=== PATIENT | female | born 1965 | race Caucasian/White ===

== ENCOUNTER 2019-01-25 09:14 | Emergency (ER) | payer OTHER ==
[2019-01-25] MEDS ORDERED: cefTRIAXone 1 GM VIAL IM STA (10:16)
[2019-01-25] MEDS ORDERED: LIDOCAINE 1% 2 ML VIAL MC ONE (10:16)
--- NOTE | 2019-01-25 10:35 | ED Physician Documentation ---
PD HPI URI - Stated complaint Stated Complaint: FEVER - Chief complaint Chief Complaint: Fever - History obtained from History obtained from: Patient, Family - History of Present Illness Timing - onset: How many days ago (3) Timing duration: Days (3) Timing details: Gradual onset, Still present Associated symptoms: Fever, Chills, Sweats, Nasal congestion, Rhinorrhea, Dry cough Improves by: Rest, Medication, MDI/nebulizer Similar symptoms before: Diagnosis (pneumonia) Recently seen: Clinic - Additional information Additional information: 53-year-old female who had a pneumonia 3 weeks ago was treated with a 5-day course of Levaquin and she improved slowly. She now reports that she is developed an increase in her cough and cold symptoms over the last 3 days and last night she developed fever. She does feel rundown and thinks she has the pneumonia back again. Review of Systems Constitutional: reports: Fever, Chills, Myalgias, Fatigue, Sweats Eyes: denies: Decreased vision Ears: denies: Ear pain Nose: reports: Congestion. 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 : None HEENT: None Psych: None Musculoskeletal: Rheumatoid arthritis Derm: None - Past Surgical History Past Surgical History: Yes - Present Medications Home Medications: Ambulatory Orders Medication Instructions Recorded Confirmed Albuterol 0 mg INH Q4H PRN 01/25/19 01/25/19 Azithromycin [Zithromax] 250 mg PO DAILY #6 tablet 01/25/19 Fluticasone/Salmeterol [Advair 0 puffs INH DAILY 01/25/19 01/25/19 500-50 Diskus] Methotrexate 0 mg PO OAW 01/25/19 01/25/19 Montelukast [Singulair] 10 mg PO QPM 01/25/19 01/25/19 SUMAtriptan [Imitrex] 0 mg PO PRN PRN 01/25/19 01/25/19 - Allergies Allergies/Adverse Reactions: Allergies Allergy/AdvReac Type Severity Reaction Status Date / Time No Known Drug Allergies Allergy Verified 01/25/19 09:32 - Social History Does the pt smoke?: No Smoking Status: Never smoker Does the pt drink ETOH?: No Does the pt have substance abuse?: No - Immunizations Immunizations are current?: Yes PD ED PE NORMAL - Vitals Vital signs reviewed: Yes (tachy and hypertensive ) - General General: Alert and oriented X 3, No acute distress, Well developed/nourished - HEENT HEENT: Atraumatic, PERRL, EOMI, Ears normal, Moist mucous membranes, Pharynx benign, Dentition benign - Neck Neck: Supple, no meningeal sign, No bony TTP - Cardiac Cardiac: No murmur, Other (tachy to 100) - Respiratory Respiratory: No respiratory distress, Other (scattered wheezes and rhonchi bilat) - Abdomen Abdomen: Soft, Non tender - Back Back: No CVA TTP, No spinal TTP - Derm Derm: Normal color, Warm and dry, No rash - Extremities Extremities: No deformity, No edema - Neuro Neuro: Alert and oriented X 3, 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 Mild right upper lobe volume loss and mild bandlike airspace opacity in the anterior posterior segment of the right upper lobe abutting the major and minor fissures which may reflect atelectasis or scarring, not a typical appearance for a lobar pneumonia. 2. Mild wispy airspace opacity suggesting atelectasis or scarring in the posterior medial lung bases bilaterally), EMP read indepedently, See rad report PD MEDICAL DECISION MAKING - ED course Complexity details: reviewed results, re-evaluated patient, considered differential, d/w patient, d/w family ED course: 53-year-old female with a recent pneumonia has recurrence of symptoms and radiographic appearance of progression. She is administered Rocephin IM and will place her on a course of azithromycin. She was given a single dose of dexamethasone here in the emergency department and she will follow-up with her primary care doctor in [place] when she is done with her vacation here. Departure - Departure Disposition: 01 Home, Self Care Clinical Impression: Pneumonia Qualifiers: Pneumonia type: due to unspecified organism Laterality: right Lung location: upper lobe of lung Qualified Code(s): J18.1 - Lobar pneumonia, unspecified organism Condition: Stable Instructions: ED Pneumonia Adult Follow-Up: Megan Buckley MD [Primary Care Provider] - Prescriptions: Azithromycin [Zithromax] 250 mg PO DAILY #6 tablet
--- NOTE | 2019-01-25 10:43 | XRAY Report ---
Reason: hx LLL pneumonia not feeling well. Procedure Date: 01/25/2019 Accession Number: [id number] / [id number] Procedure: XR - Chest 2 View X-Ray CPT Code: 74336 FULL RESULT: EXAM: CHEST RADIOGRAPHY EXAM DATE: 01/25/2019 10:05 AM. CLINICAL HISTORY: Hx LLL pneumonia not feeling well. COMPARISON: None. TECHNIQUE: 2 views. FINDINGS: Lungs/Pleura: Mild right upper lobe volume loss with mild elevation of the minor fissure. In the right upper lobe anterior and posterior segments adjacent to the minor fissure and upper major fissure, there is mild bandlike airspace opacity. Also, there is some mild wispy density in the posterior medial lung bases bilaterally. No peribronchial cuffing or generalized interstitial abnormality. No pneumothorax or pleural fluid. Mediastinum: Heart and mediastinal contours are unremarkable. Other: Mild left convex upper and right convex lower thoracic scoliosis. Surgical clips consistent with prior left thyroid lobe surgery. IMPRESSION: 1. Mild right upper lobe volume loss and mild bandlike airspace opacity in the anterior posterior segments of the right upper lobe abutting the major and minor fissures which may reflect atelectasis or scarring, not a typical appearance for lobar pneumonia. 2. Mild wispy airspace opacity suggesting atelectasis or scarring in the posterior medial lung bases bilaterally. [facility]
[2019-01-25] MEDS ORDERED: DEXAMETHASONE 10 MG/ML VIAL PO STA (10:58)
[2019-01-25] MEDS ORDERED: CHERRY SYRUP 10 ML UDC PO ONE (10:58)
[2019-01-25 11:02] VITALS: BP 111/91
== END 2019-01-25 11:04 | disposition home or self-care (01) ==
LOC: ED 09:14
DX: J18.1 Lobar pneumonia, unspecified organism (principal)
CPT/HCPCS: 71046; 96372; 99283; 99284; A9270